=== PATIENT | male | born 1960 | race Caucasian/White ===

== ENCOUNTER 2018-01-21 20:13 | Emergency (ER) | payer BC, OTHER ==
[~2018-01-21] VITALS: Ht 177.8 cm; Wt 77.1 kg
[~2018-01-21 20:13] MED LIST: LOPRESSOR25 M1 ORAL; NAPROSYN500 M1 ORAL; NEVIRAPINE200 MG PO; NORCO 5-325 TA1 EACH ORAL; PREDNISONE20 MG ORAL; VALIUM5 MG ORAL; VASOTEC10 MG ORAL
[2018-01-21 20:30] VITALS: BP 126/86
[2018-01-21] MEDS ORDERED: Fluorescein Strips BOTH EYES ONE (21:00)
[2018-01-21] MEDS ORDERED: Tetracaine 0.5% Opth 4ml Soln LEFT EYE ONE (21:00)
[2018-01-21] MEDS ORDERED: CILOXAN5 ML OP (21:43)
[2018-01-21 21:55] VITALS: BP 126/86
--- NOTE | 2018-01-22 14:16 | Emergency Room Report ---
History of Present Illness General Chief Complaint: Eye Problems Source: Patient Present Illness HPI Patient is a 57-year-old male who presented after increased left eye pain and redness. Patient reported having onset of symptoms approximate 2 days prior to arrival. Patient states that he had prior history of HIV and had previous infection to his eyes. This required hospitalization. The patient stated he was recently doing work at home with increased amount of dust and felt something fly into his eye. The patient reported having increased foreign body sensation.The patient reports having increased photophobia. Allergies: Coded Allergies: SULFAMETHOXAZOLE (Verified Allergy, Mild, Hives, 05/09/14) TRIMETHOPRIM (Verified Allergy, Mild, Hives, 05/09/14) Patient History Past Medical History: see triage record Reviewed Nursing Documentation: PMH: Agreed; PSxH: Agreed Nursing Documentation-PMH Hx Hypertension: Yes Review of Systems All Other Systems: negative except mentioned in HPI Physical Exam Vital Signs Date Time Temp Pulse Resp B/P (MAP) Pulse Ox O2 Delivery O2 Flow Rate FiO2 01/21/18 20:23 97.6 66 18 126/86 99 Room Air 97.5 General Appearance: well appearing, no apparent distress, alert, GCS 15 Head: normocephalic, atraumatic Eyes: left eye Scleral Injection, left eye other - foreign body noted at 7 o' clock left eye with fluorescein dye uptake ENT: hearing grossly normal, normal voice Neck: full range of motion, supple Respiratory: no respiratory distress, speaking full sentences Musculoskeletal: no calf tenderness Neurologic: normal gait Psychiatric: mood/affect normal Skin: no rash Medical Decision Making Diagnostic Impression: Primary Impression: Eye foreign body ER Course Patient presented for eye redness. Differential diagnosis included but wasn't limited to glaucoma, iritis, corneal abrasion, bacterial conjunctivitis, viral conjunctivitis. The patient was noted to have evidence of left eye corneal foreign body. The patient was given topical anesthetic. Patient refused removal in the emergency department despite information of risks of worsening of condition. The patient stated that he would use topical antibiotics which were prescribed. The patient was advised to follow-up with ophthalmology as soon as possible.The patient was advised to return if he changes mind regarding foreign body removal.Patient was prescribed Ciloxan drops Last Vital Signs Date Time Temp Pulse Resp B/P (MAP) Pulse Ox O2 Delivery O2 Flow Rate FiO2 01/21/18 21:55 97.5 18 126/86 99 Room Air 97.5 01/21/18 20:23 66 Status: unchanged Disposition: HOME, SELF-CARE Condition: Stable Scripts Ciprofloxacin HCl (Ciloxan) 5 Ml Drops 5 ML OP EVERY 4 HOURS, #5 ML Prov: Zbigniew Lin 01/21/18 Referrals: NON PHYSICIAN (PCP) Patient Instructions: Eye Foreign Body Additional Instructions: Make sure to be seen by recreation program specialist as soon as possible Zbigniew Lin Jan 22, 2018 14:16
== END 2018-01-21 21:58 | disposition home or self-care (01) ==
LOC: EMR 21:00
DX: T15.90XA Foreign body on external eye, part unspecified, unspecified eye, initial encounter (principal); I10 Essential (primary) hypertension; Z88.2 Allergy status to sulfonamides; Z88.1 Allergy status to other antibiotic agents; X58.XXXA Exposure to other specified factors, initial encounter; Y92.009 Unspecified place in unspecified non-institutional (private) residence as the place of occurrence of the external cause
CPT/HCPCS: 99283

== ENCOUNTER 2019-06-01 20:30 | Emergency (ER) | payer BC ==
[~2019-06-01] VITALS: Ht 177.8 cm; Wt 79.4 kg
[~2019-06-01 20:30] MED LIST changes: +CILOXAN5 ML OP
--- NOTE | 2019-06-01 20:48 | NUR ---
ED Nurse Note: pt walked in c/o left foot pain started this morning, pt reports he fell on his knee last night and thinks he might have injured his foot. cms intact, will cont monitor. dorsal pulses +2, cap refill <3sec.
[2019-06-01] MEDS ORDERED: NAPROXEN375 M2 ORAL (21:39)
[2019-06-01 21:45] VITALS: BP 143/81
--- NOTE | 2019-06-01 21:45 | NUR ---
ED Nurse Note: PT CLEARED TO BE D/C PER ERMD, ACEWRAP APPLIED PER ERMD ORDER, PT DISCHARGE AND AFTERCARE INSTRUCTION PROVIDED W/ PRESCRIPTION SENT ELECTRONICALLY, PT EDUCATION DONE VIA DISCUSSION AND HANDOUT, PT ADVISED TO FOLLOW UP WITH PCP OR RETURN TO ED IF CHANGES IN CONDITION, VSS, AMBULATORY W/ STEADY GAIT LEFT W/ ALL BELONGINGS, ACCOMPANIED BY FRIEND..
--- NOTE | 2019-06-02 17:46 | Diagnostic Imaging Report ---
Indication: Reason For Exam: PAIN Technique: 3 views left foot Comparison: none Findings: There is suggestion of an ulcer involving the medial aspect of the great toe distally. No evidence of osseous erosion or osteolytic process. Unusual periosteal reaction. No evidence of acute fracture. No dislocations. There are some vascular calcifications. The joint spaces are preserved. No acute fractures Impression: Medial great toe soft tissue defect, may indicate an ulcer or posttraumatic soft tissue injury. Correlate with clinical findings No plain radiographic evidence of underlying osteomyelitis, but sensitivity of plain films for such is limited No acute bony trauma
--- NOTE | 2019-06-02 19:46 | Emergency Room Report ---
History of Present Illness General Chief Complaint: Lower Extremity Injury Source: Patient Present Illness HPI Patient is a 59-year-old male presents after increased left lower extremity pain. Patient reports having recently inverted his foot. He reports having increased pain to the plantar aspect of both lower extremity. Is worse with movement and weightbearing. Pain is sharp in nature. Patient be able to ambulate with a crutch. He denies other locations of injury. Allergies: Coded Allergies: SULFAMETHOXAZOLE (Verified Allergy, Mild, Hives, 05/09/14) TRIMETHOPRIM (Verified Allergy, Mild, Hives, 05/09/14) Patient History Past Medical History: see triage record Reviewed Nursing Documentation: PMH: Agreed; PSxH: Agreed Nursing Documentation-PMH Past Medical History: No History, Except For Hx Hypertension: Yes Review of Systems All Other Systems: negative except mentioned in HPI Physical Exam Vital Signs Date Time Temp Pulse Resp B/P (MAP) Pulse Ox O2 Delivery O2 Flow Rate FiO2 06/01/19 20:34 98.4 64 18 146/87 (106) 97 Room Air General Appearance: no apparent distress, alert, Chronically Ill Eyes: left eye abnormal EOM; bilateral eye normal inspection ENT: normal ENT inspection, hearing grossly normal Neck: full range of motion Respiratory: normal inspection Cardiovascular #1: normal inspection Gastrointestinal: normal inspection Musculoskeletal: tenderness - to plantar aspect of left foot fascia. no malleolar or achilles tenderness Neurologic: normal inspection, alert, oriented x3 Skin: normal inspection, normal color Medical Decision Making Diagnostic Impression: Primary Impression: Sprain of foot, right ER Course Patient presented for left foot pain. Differential diagnosis include was not limited to fracture, contusion, dislocation, plantar fasciitis, sprain among others. X-ray imaging of the foot 3 views interpreted by me showed degenerative changes without evident fracture. Patient appears to be stable for discharge. He was given Gonzalo wrap. Patient was advised to keep the foot elevated and continue to ice and take nonsteroidal anti-inflammatory medications. He is advised to return if worse. Last Vital Signs Date Time Temp Pulse Resp B/P (MAP) Pulse Ox O2 Delivery O2 Flow Rate FiO2 06/01/19 21:45 98.4 68 18 143/81 99 Room Air Status: improved Disposition: HOME, SELF-CARE Condition: Stable Scripts Naproxen* (NAPROXEN*) 375 Mg Tablet. 375 MG ORAL TWICE A DAY, #20 TAB Prov: Zbigniew Lin MD 06/01/19 Patient Instructions: Foot Sprain Zbigniew Lin MD Jun 02, 2019 19:46
== END 2019-06-01 21:45 | disposition home or self-care (01) ==
LOC: EMR 20:55
DX: S93.602A Unspecified sprain of left foot, initial encounter (principal); X50.1XXA Overexertion from prolonged static or awkward postures, initial encounter; Y92.9 Unspecified place or not applicable; I10 Essential (primary) hypertension; Z88.2 Allergy status to sulfonamides; Z88.1 Allergy status to other antibiotic agents
CPT/HCPCS: 99283

== ENCOUNTER 2020-02-16 21:56 | Emergency (ER) | payer BC, OTHER ==
[~2020-02-16 21:56] MED LIST changes: +NAPROXEN375 M2 ORAL
--- NOTE | 2020-02-16 22:20 | NUR ---
pt not in lobby, 1st call
--- NOTE | 2020-02-16 22:53 | Emergency Room Report ---
History of Present Illness General Chief Complaint: To Be Triaged Source: Patient, Medical Record Present Illness HPI This is a 59-year-old male with a history of anxiety. He checked then wanting a prescription for Xanax. He did not want to come into the hospital because he worried that there are COVID patient here. He has triage nurse if we have any covered patient in the ER and the nurse said that yes we do. Because of that he refused to come into the hospital. I did not see this patient. Allergies: Coded Allergies: SULFAMETHOXAZOLE (Verified Allergy, Mild, Hives, 05/09/14) TRIMETHOPRIM (Verified Allergy, Mild, Hives, 05/09/14) Nursing Documentation-PMH Hx Hypertension: Yes Medical Decision Making Diagnostic Impression: Primary Impression: medication refill ER Course I did not see this patient. Status: unchanged Disposition: LEFT W/OUT BEING SEEN Condition: Stable Jonnie Rodriguez MD February 16, 2020 22:53
== END 2020-02-16 22:30 | disposition left against medical advice (07) ==
LOC: EMR 22:20
DX: F41.9 Anxiety disorder, unspecified (principal); Z53.21 Procedure and treatment not carried out due to patient leaving prior to being seen by health care provider; I10 Essential (primary) hypertension; Z88.2 Allergy status to sulfonamides; Z88.8 Allergy status to other drugs, medicaments and biological substances; Z76.0 Encounter for issue of repeat prescription

== ENCOUNTER 2020-06-26 18:56 | Emergency (ER) | payer OTHER ==
[~2020-06-26] VITALS: Ht 175.3 cm; Wt 72.6 kg
[2020-06-26 19:00] VITALS: BP 126/82
--- NOTE | 2020-06-26 19:41 | Diagnostic Imaging Report ---
EXAM: CT Cervical Spine Without Intravenous Contrast CLINICAL HISTORY: TRAUMA TECHNIQUE: Axial computed tomography images of the cervical spine without intravenous contrast. CTDI is 28.9 mGy and DLP is 622.7 mGy-cm. One or more of the following dose reduction techniques were used: automated exposure control, adjustment of the mA and/or kV according to patient size, use of iterative reconstruction technique. COMPARISON: No relevant prior studies available. FINDINGS: Vertebrae: No acute fracture. Grade 1 anterolisthesis of C4 on C5 is favored to be degenerative. Kyphosis centered at C5-C6. Straightening of the normal cervical lordosis. Discs/spinal canal/neural foramina: Disc height loss, osteophytes, uncovertebral spurs, and facet arthropathy. Multilevel foraminal narrowing. Mild spinal stenosis at C5-C6. Soft tissues: No significant abnormality. IMPRESSION: No acute fracture.
--- NOTE | 2020-06-26 19:53 | Diagnostic Imaging Report ---
EXAM: CT Head Without Intravenous Contrast CLINICAL HISTORY: TRAUMA TECHNIQUE: Axial computed tomography images of the head/brain without intravenous contrast. CTDI is 53.4 mGy and DLP is 1002.7 mGy-cm. One or more of the following dose reduction techniques were used: automated exposure control, adjustment of the mA and/or kV according to patient size, use of iterative reconstruction technique. COMPARISON: No relevant prior studies available. FINDINGS: Brain: No acute intracranial hemorrhage or significant mass effect. Nonspecific areas of hypoattenuation in the periventricular white matter likely represent the sequela of chronic small vessel ischemic disease. Small focus of hypoattenuation in the right thalamus. Ventricles: Ventricular and sulcal prominence commensurate with the patient's age. Bones/joints: No acute abnormality. Soft tissues: No significant abnormality. Sinuses: No significant abnormality. Mastoid air cells: No significant abnormality. IMPRESSION: 1. No acute intracranial hemorrhage or calvarial fracture. 2. Age-indeterminate lacunar infarct in the right thalamus. MRI of the brain may be considered for further characterization.
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
[2020-06-26] MEDS ORDERED: LIDODERM700 M1 TOPIC (19:59)
[2020-06-26] MEDS ORDERED: ROBAXIN-500MG ORAL (19:59)
[2020-06-26 20:05] VITALS: BP 126/82
== END 2020-06-26 20:05 | disposition home or self-care (01) ==
LOC: EMR 19:10
DX: S00.93XA Contusion of unspecified part of head, initial encounter (principal); M40.202 Unspecified kyphosis, cervical region; I10 Essential (primary) hypertension; Z88.2 Allergy status to sulfonamides; B20 Human immunodeficiency virus [HIV] disease; W19.XXXA Unspecified fall, initial encounter; Y92.9 Unspecified place or not applicable
CPT/HCPCS: 70450; 72125; Z7502; 99284